=== PATIENT | female | born 1940 | race Caucasian/White ===

== ENCOUNTER 2019-03-25 12:58 | Inpatient (IN) | payer OTHER ==
[~2019-03-25] VITALS: Ht 160 cm; Wt 68.0 kg
--- NOTE | 2019-03-25 12:58 | NUR ---
PT TO ER BED 8 VIA FIRST RESCUE
[2019-03-25 13:01] VITALS: BP 76/44
[2019-03-25] MEDS ORDERED: NACL 0.9% 1,000 ML IV SCH (13:04)
[2019-03-25] MEDS ORDERED: cefTRIAXone 1,000 MG in DEXT 5% MINI-BAG PLUS 50 ML IV ONE (13:05)
--- NOTE | 2019-03-25 13:05 | NUR ---
20 gauge inserted into pts r ac. labs and cultures drawn bedside. lab called for pickup
--- NOTE | 2019-03-25 13:10 | NUR ---
PT BIBA FROM [facility] FOR FURTHER EVALUATION OF ABNORMAL LABS; WBC 12.9, BUN 40, CREATININE 1.8. PER REPORT PT WAS NOTED LETHARGIC AND CONFUSED. UPON ARRIVAL PT WAS AWAKE, ALERT AND ORIENTED TO PERSON, PLACE, TIME AND EVENT. PT WITH ABD WOUND VAC S/P HERNIA REPAIR SURGERY. PT CHANGED INTO HOSPTIAL GOWN; CONNECTED TO MONITOR. ERMD TO EVALUATE PT. ALLERGIES: NONE MED HX: GERD, HTN, A-FIB, VENTRAL HERNIA WITH OBSTRUCTION W/O GANGRENE
[2019-03-25] MEDS ORDERED: NACL 0.9% 500 ML IV SCH (13:16)
[2019-03-25] MEDS ORDERED: cefTRIAXone 1,000 MG VIAL ONE (13:25)
[2019-03-25] MEDS ORDERED: L. A1TAB10 PO (13:29)
[2019-03-25] MEDS ORDERED: IPRA3AMP2 IH (13:29)
[2019-03-25] MEDS ORDERED: LOV40I SUBQ (13:29)
[2019-03-25] MEDS ORDERED: LEVO750T2 PO (13:29)
[2019-03-25] MEDS ORDERED: METO25TA PO (13:29)
[2019-03-25] MEDS ORDERED: HYDR-5122 PO (13:29)
[2019-03-25] MEDS ORDERED: FAMO-90 PO (13:29)
[2019-03-25] MEDS ORDERED: POTA10TE30 PO (13:29)
[2019-03-25] MEDS ORDERED: ENAL-197 PO (13:29)
--- NOTE | 2019-03-25 13:34 | NUR ---
BLOOD SENT TO LAB WITH ALLISON NOLAND
[2019-03-25 13:43] LABS: BASOPHILS % (AUTO) 0.2 % (0.0-2.0); EOSINOPHILS # (AUTO) 0.2 K/uL (0-0.4); EOSINOPHILS % (AUTO) 1.4 % (0.0-4.0); HEMATOCRIT 29.8 % (36-48); HEMOGLOBIN 9.7 g/dL (12.0-16.0); LYMPHOCYTES # (AUTO) 1.6 K/uL (2.5-16.5); MEAN CORPUSCULAR HEMOGLOBIN 30 pg (27-31); MEAN CORPUSCULAR HGB CONC 32 g/dL (33-37); MEAN CORPUSCULAR VOLUME 93.1 fL (80-94); MONOCYTES # (AUTO) 0.9 K/uL (0.8-1.0); MONOCYTES % (AUTO) 8.2 % (1.7-9.3); NEUTROPHILS # (AUTO) 8.7 K/uL (1.8-7.7); NEUTROPHILS % (AUTO) 76.2 % (42.2-75.2); PLATELET COUNT (AUTO) 401 K/uL (140-450); RED BLOOD CELL COUNT(AUTO) 3.21 MIL/uL (4.20-5.40); RED CELL DISTRIBUTION WIDTH 13.8 % (11.6-13.7); WHITE BLOOD COUNT (AUTO) 11.5 K/uL (4.8-10.8)
--- NOTE | 2019-03-25 13:56 | NUR ---
ROMULO SON [phone]
[2019-03-25 14:16] LABS: ALBUMIN 2.2 g/dL (3.4-5.0); ANION GAP 16.7 (8-16); ASPARTATE AMINOTRANSFERASE 25 U/L (15-37); CARBON DIOXIDE 24.8 mmol/L (21-32); CHLORIDE 103 mmol/L (98-107); CREATININE 2.5 mg/dL (0.6-1.3); GLUCOSE 96 mg/dL (74-106); POTASSIUM 3.5 mmol/L (3.5-5.1); SODIUM SERUM 141 mmol/L (136-145); TOTAL BILIRUBIN 0.5 mg/dL (0.0-1.0)
[2019-03-25 15:00] LABS: UREA NITROGEN, BLOOD 45 mg/dL (7-18)
[2019-03-25 15:48] LABS: APPEARANCE,URINE HAZY (CLEAR); BILIRUBIN,URINE NEGATIVE (NEGATIVE); BLOOD, URINE 2+ (NEGATIVE); COLOR,URINE YELLOW (YELLOW); LEUKOCYTE ESTERASE ,URINE 1+ (NEGATIVE); NITRITE, URINE NEGATIVE (NEGATIVE); UGLUCOSE NEGATIVE (NEGATIVE)
[2019-03-25 15:56] LABS: RBC,URINE 11-20 (MOD) /HPF (0-5); WBC,URINE TOO MANY TO COUNT /HPF (0-5)
--- NOTE | 2019-03-25 16:00 | NUR ---
Oxygen applied at 2 L per minute via NC. 02 saturation 98% by pulse oximetry.
[2019-03-25] MEDS ORDERED: ONDANSETRON 4 MG/2 ML VIAL IVP PRN (16:35)
[2019-03-25] MEDS ORDERED: HYDROcodone/APAP 7.5/325 MG 1 TAB PO PRN (16:35)
[2019-03-25] MEDS ORDERED: ACETAMINOPHEN 325 MG TAB PO PRN (16:35)
--- NOTE | 2019-03-25 17:56 | NUR ---
Pt admitted from ER to room 120B via gurney. Transferred to bed with total assist. Received report from pm nurse Tali. Pt aaox2, forgetful, able to verbalize needs. Son Momo at bedside with pt. Left hand 22H IV saline lock & right AV IV saline lock intact & asymptomatic. Abd dressing clean, dry, & intact. Pt denies any pain at this time. Pt oriented to room & unit, able to return demonstrate proper use of call light & bed controls. Fall risk protocol initiated. MRSA swab obtained.
--- NOTE | 2019-03-25 17:59 | NUR ---
Patient admitted to care of Dr. Rascon. Admited to Med Surge RM 120B. Belongings list completed. Report to ALLISON Warren. Pt in stable condition; transfer of care at this time.
[2019-03-25 18:00] VITALS: BP 108/66
--- NOTE | 2019-03-25 18:20 | NUR ---
Momo son informed nurse that he will go out to get food for pt, and will be back in a few minutes. Pt in high fowlers in bed, no c/o discomfort, respirations even & nonlabored. Call light within reach.
[2019-03-25] MEDS: NACL 0.9% 1,000 ML IV SCH (18:30)
--- NOTE | 2019-03-25 19:10 | NUR ---
Bedside report given to pm nurse Yessenia. Pt sitting up in bed, eating pudding, no signs of distress. Call light within reach.
--- NOTE | 2019-03-25 19:11 | NUR ---
RECEIVED BEDSIDE REPORT BY OMID BAEZA SHIFT RN. PT A/O X3. TO PERSON, PLACE, EVENT. PT IS FORGETFUL. TELUGU SPEAKING. DISCUSSED PLAN OF CARE. VERBALIZED UNDERSTANDING. STANDARD PRECAUTIONS IN PLACE. SAFETY PRECAUTIONS IN PLACE. YELLOW SOCKS, GOWN, BRACELET, AND SIGN NEAR DOOR. NO SIGNS OF RESP DISTRESS. NASAL CANULA @2.5L. SKIN IS NON INTACT. ABD WOUND. DRESSING CLEAN DRY AND INTACT. NO DRAINAGE NOTED. BILATERAL LOWER EXTREMITY EDEMA +2. R AC 20 SALINE LOCK. L HAND 22G INFUSING NS @100. PATENT AND INTACT. UNABLE TO AMBULATE. BED ALARM ACTIVE. BED IN LOWEST POSITION. CALL LIGHT WITHIN REACH. WILL CONTINUE TO MONITOR.
[2019-03-25 19:46] LABS: FREE T4 (FREE THYROXINE) 1.4 ng/dL (0.76-1.46); MAGNESIUM 1.4 mg/dL (1.8-2.4); PHOSPHORUS 3.6 mg/dL (2.5-4.9); THYROID STIMULATING HORMONE 4.53 uIU/mL (0.34-3.74)
[2019-03-25] MEDS ORDERED: METOPROLOL 25 MG TAB PO SCH (21:00)
[2019-03-25] MEDS: DOCUSATE SODIUM 100 MG GELCAP PO SCH (21:14)
[2019-03-25] MEDS ORDERED: PIPERACILLIN/TAZOBACTAM 3.375 GM VIAL IV ONE (21:36)
[2019-03-25] MEDS: PIPERACILLIN/TAZOBACTAM 3.375 GM in DEXTROSE 5% 50 ML IV SCH (21:40)
--- NOTE | 2019-03-25 21:40 | NUR ---
ADMINISTERED MEDS ORDERED. EDUCATED ON SIDE EFFECTS. PT VERBALIZED UNDERSTANDING. TOLERATED WELL. WILL CONTINUE TO MONITOR.
--- NOTE | 2019-03-26 | NUR ---
PT IS SLEEPING IN BED. EASILY AROUSABLE. NO SIGNS OF DISTRESS NOTED. ABLE TO MAKE NEEDS KNOWN. BED IN LOWEST POSITION. CALL LIGHT WITHIN REACH.
--- NOTE | 2019-03-26 02:22 | NUR ---
PT IS SLEEPING EASILY AROUSABLE. NO COMPLAINTS AT THIS TIME. DENIES PAIN. NO DISTRESS. BED IN LOW POSITION. CALL LIGHT WITHIN REACH. WILL CONTINUE TO MONITOR.
[2019-03-26] MEDS: NACL 0.9% 1,000 ML IV SCH ×2 (03:15→15:40)
[2019-03-26] MEDS ORDERED: PIPERACILLIN/TAZOBACTAM 3.375 GM VIAL IV ONE (04:57)
--- NOTE | 2019-03-26 05:04 | NUR ---
PT REQUESTED WATER WITH ICE. PT ABLE TO SWALLOW. PT REPOSITIONED IN BED. WILL CONTINUE TO MONITOR.
[2019-03-26] MEDS: PIPERACILLIN/TAZOBACTAM 3.375 GM in DEXTROSE 5% 50 ML IV SCH ×2 (06:08→21:20)
--- NOTE | 2019-03-26 06:08 | NUR ---
PERFORMED NOEL CARE. TOLERATED WELL. CHANGED DRESSING ON ABD WOUND. WOUND PICTURE TAKEN. TOLERATED WELL. NO SIGNS OF DISTRESS. WILL CONTINUE TO MONITOR.
[2019-03-26 06:37] LABS: ANION GAP 13.4 (8-16); CARBON DIOXIDE 24.8 mmol/L (21-32); CHLORIDE 109 mmol/L (98-107); CREATININE 1.7 mg/dL (0.6-1.3); GLUCOSE 106 mg/dL (74-106); POTASSIUM 3.2 mmol/L (3.5-5.1); SODIUM SERUM 144 mmol/L (136-145); UREA NITROGEN, BLOOD 35 mg/dL (7-18)
--- NOTE | 2019-03-26 06:39 | NUR ---
WILL ENDORSE PT TO DAYSHIFT RN. PT IN STABLE CONDITION. BED IN LOWEST POSITION. CALL LIGHT WITHIN REACH. WILL CONTINUE TO MONITOR.
[2019-03-26 06:46] LABS: CHOL/HDL RATIO 7.1 (1-4.5)
[2019-03-26 06:48] LABS: MAGNESIUM 1.4 mg/dL (1.8-2.4); PHOSPHORUS 3.3 mg/dL (2.5-4.9)
[2019-03-26 06:55] LABS: BASOPHILS % (AUTO) 0.3 % (0.0-2.0); EOSINOPHILS # (AUTO) 0.4 K/uL (0-0.4); EOSINOPHILS % (AUTO) 4.4 % (0.0-4.0); HEMOGLOBIN 8.7 g/dL (12.0-16.0); LYMPHOCYTES # (AUTO) 1.4 K/uL (2.5-16.5); LYMPHOCYTES % (AUTO) 14.6 % (20.5-51.1); MEAN CORPUSCULAR HEMOGLOBIN 31 pg (27-31); MEAN CORPUSCULAR HGB CONC 34 g/dL (33-37); MEAN CORPUSCULAR VOLUME 93.6 fL (80-94); MONOCYTES # (AUTO) 0.7 K/uL (0.8-1.0); MONOCYTES % (AUTO) 7.5 % (1.7-9.3); NEUTROPHILS # (AUTO) 7.2 K/uL (1.8-7.7); NEUTROPHILS % (AUTO) 73.2 % (42.2-75.2); PLATELET COUNT (AUTO) 273 K/uL (140-450); RED BLOOD CELL COUNT(AUTO) 2.78 MIL/uL (4.20-5.40); RED CELL DISTRIBUTION WIDTH 13.8 % (11.6-13.7); WHITE BLOOD COUNT (AUTO) 9.9 K/uL (4.8-10.8)
--- NOTE | 2019-03-26 07:35 | NUR ---
RECIEVED REPORT FROM NIGHT NURSE, PT AWAKE A/O AND APPROPRIATE ABLT TO COMMUNICATE NEEDS. CALL LIGHT AND SAFETY PRECAUTIONS IN PLACE, PERSONAL ITEMS WITHIN EASY REACH. PT DENIES PAIN, NO S/S OF ACUTE DISTRESS NOTED, WILL CONTINUE TO MONITOR.
[2019-03-26 08:00] VITALS: BP 101/54
--- NOTE | 2019-03-26 08:10 | NUR ---
RECEIVED PT ON 2 L NASAL CANNULA. AWAKE AND ALERT. NO RESP DISTRESS. HR 91, SAT 02 97% , RR 22.
[2019-03-26] MEDS ORDERED: POTASSIUM CHLORIDE 10 MEQ TABER PO SCH (09:00)
[2019-03-26] MEDS ORDERED: ENOXAPARIN 30 MG/0.3 ML SYR SUBQ SCH (09:00)
[2019-03-26] MEDS: LACTOBACILLUS RHAMNOSUS GG 1 EACH CAP PO SCH (09:13)
[2019-03-26] MEDS: DOCUSATE SODIUM 100 MG GELCAP PO SCH ×2 (09:13→21:12)
[2019-03-26] MEDS: FAMOTIDINE 20 MG TAB PO SCH (09:14)
[2019-03-26] MEDS: MAG SULF 2000 MG/WATER PREMIX 50 ML IV SCH ×2 (09:16→11:37)
--- NOTE | 2019-03-26 10:12 | NUR ---
PATIENT HAS BEEN SCREENED AND CATEGORIZED HIGH NUTRITION RISK. PATIENT WILL BE SEEN WITHIN 1-2 DAYS OF ADMISSION. 03/26/19-03/27/[address]
--- NOTE | 2019-03-26 10:30 | NUR ---
PT AWAKE A/O AND APPROPRIATE ABLT TO COMMUNICATE NEEDS, VISITING W FAMILY AT BEDSIDE, CALL LIGHT AND SAFETY PRECAUTIONS IN PLACE, PERSONAL ITEMS WITHIN EASY REACH. PT DENIES PAIN, NO S/S OF ACUTE DISTRESS NOTED, WILL CONTINUE TO MONITOR.
--- NOTE | 2019-03-26 12:04 | NUR ---
WOUND CARE EVALUATION NOTE: REASON FOR EVALUATION: SURGICAL WOUNDS TO MID AND LOWER ABDOMINAL SKIN ASSESSMENT DONE ON WITH THIS 73Y/O FEMALE PATIENT [facility] TO [facility] WITH INITIAL DIAGNOSIS OF RADHA. PAST MEDICAL HX WITH HTN LEFT EYE BLINDNESS AND RECENT VENTRAL HERNIA REPAIRMEN. ALL ABOVE INFORMATION WAS OBTAINED FROM THE ADMISSION H&P. AND PT. PT IS AAX4. SON AT BEDSIDE AND PROVIDES INFORMATION R/T HX OF SURGERY, PT. HAD SURGERY AT [facility] AND HAD WOUND VAC TX SINCE THE SURGERY. SKIN WARM TO TOUCH, NO EDEMA BLE, BILATERAL PEDAL PULSES PRESENT, NEEDS SET UP ASSISTANCE IN TURNING. INITIAL PLAN OF CARE DISCUSSED WITH SON AND PT. PT. VERBALIZES UNDERSTANDING.DR. WICK NOTIFIED LOWER ABDOMINAL 6 STABLES AND VERBAL ORDERS GIVEN TO REMOVE THE BOB. INTEGUMENTARY: -SURGICAL WOUND TO MID LOWER ABDOMINAL, 10X5X0.5CM WOUND BED 100% GRANULATING TISSUE, SMALL AMOUNT SEROSANGUINEOUS BLEEDING, NO ODOR, WOUND EDGE WELL DEFINED, WITH NOEL-WOUND SKIN DRY AND INTACT. -SURGICAL WOUND TO LOWER ABDOMINAL, CURVED LINER WOUND SHAPE, 6 BOB REMOVED, NO S/S OF INFECTION, STERI STRIPS APPLIED RECOMMENDATIONS: -CLEANSE MID ABDOMINAL WOUND WITH NS. PAT DRY APPLY THERAHONEY GEL WITH ADAPTIC DRESSING SHEET TO WOUND BED AND COVER WITH DRY DRESSING, SECURE WITH TAPE QM-W-F AND PRN IF SOILING -KEEP LOWER ABDOMINAL STERI STRIPS IN PLACE, APPLY DRY DRESSING AND CHANGE PRN IF SOILING -KEEP AREA DRY AND CLEAN AT ALL TIME -TURN AND REPOSITION PATIENT Q 2H OFFLOAD LEFT AND RIGHT HIPS -ASSESS AND MONITOR SKIN CONDITION DURING POSITION CHANGE, PLEASE PAY ATTENTION TO FEET AND HEELS -OFFLOAD BILATERAL HEELS BY PLACING PILLOWS UNDER CALVES AT ALL TIMES, UNLESS OTHERWISE CONTRAINDICATED -SNF OR HOME HEALTH FOR WOUND CARE UPON DISCHARGED -PLEASE FOLLOW UP WITH PCP 7-10 DAYS AFTER DISCHARGED RECOMMENDATIONS DISCUSSED WITH PRIMARY RN. PLEASE CONTACT WOUND CARE NURSE FOR ANY QUESTIONS AND CHANGES IN SKIN CONDITION.
[2019-03-26] MEDS: THERAHONEY GEL 42.5 GM TP SCH (13:00)
--- NOTE | 2019-03-26 13:30 | NUR ---
PT REMAINS AWAKE A/O AND APPROPRIATE ABLT TO COMMUNICATE NEEDS, PROVIDED WITH ICE CREAM PER REQUEST. CALL LIGHT AND SAFETY PRECAUTIONS IN PLACE, PERSONAL ITEMS WITHIN EASY REACH. PT DENIES PAIN, NO S/S OF ACUTE DISTRESS NOTED, WILL CONTINUE TO MONITOR.
[2019-03-26 16:00] VITALS: BP 107/56
--- NOTE | 2019-03-26 16:30 | NUR ---
PT REMAINS AWAKE A/O AND APPROPRIATE ABLT TO COMMUNICATE NEEDS, CALL LIGHT AND SAFETY PRECAUTIONS IN PLACE, PERSONAL ITEMS WITHIN EASY REACH. PT DENIES PAIN, NO S/S OF ACUTE DISTRESS NOTED, WILL CONTINUE TO MONITOR.
--- NOTE | 2019-03-26 19:20 | NUR ---
RECEIVED REPORT FROM DEONNA COOPER DAYSHIFT NURSE, FOR CONTINUITY OF CARE, PT IN STABLE CONDITION.
--- NOTE | 2019-03-26 19:20 | NUR ---
REPORT ENDORSED TO ONCOMING NURSE, PT CURRENTLY SLEEPING, APPEARS COMFORTABLE. CALL LIGHT AND SAFETY PRECAUTIONS IN PLACE, PERSONAL ITEMS WITHIN EASY REACH. PT DENIES PAIN, NO S/S OF ACUTE DISTRESS NOTED WILL CONTINUE TO MONITOR.
--- NOTE | 2019-03-26 21:00 | NUR ---
PT IN BED AOX2, PT IS AWARE OF NAME AND THAT SHE IS IN A HOSPITAL BUT OTHERWISE PT IS CONFUSED. PT REORIENTED TO TIME, PLACE AND DATE. SKIN INTACT EXCEPT ABD WOUND, DRESSING IS DRY AND INTACT. PT HAS 22 GUAGE IN LEFT HAND WHICH IS INTACT AND FLUSHED PATENT. IV FLUID IF NORMAL SALINE RUNNING AT 70MLS/HR. PT HAS PITTING EDEMA ON LOWER EXTREMITIES +1 BILATERALLY. PT ALSO HAS MISSING/DAMAGED LEFT EYE. SHE HAS NO C/O OF PAIN AND ALL REQUESTED NEEDS ATTENDED BY STAFF. PT GIVEN ORDERED ZOSYN AND COLACE MEDICATION EDUCATION PROVIDED TO PT. PT VERBALIZED UNDERSTANDING. ALL FALLS PRECAUTIONS IN PLACE AND CALL ECHEVERRIA IN REACH.
--- NOTE | 2019-03-26 22:30 | NUR ---
PT WAS TURNED, CHANGED AND REPOSITIONED. PT ALSO REQUESTED A SNACK WHICH WAS PROVIDED TO HER. ALL FALLS PRECAUTIONS IN PLACE AND CALL ECHEVERRIA IN REACH.
[2019-03-27] VITALS: BP 94/58
--- NOTE | 2019-03-27 00:30 | NUR ---
R P T IN BED ALL FALLS PRECAUTIONS IN PLACE AND V/S FOLLOWS T 98.8 P 90 R 18 B/P 94/58 02 96% ON ROOM AIR. PT REQUESTING N/C WHICH IS RUNNING AT 2 LITERS.
[2019-03-27] MEDS: NACL 0.9% 1,000 ML IV SCH (05:30)
[2019-03-27 06:17] LABS: ANION GAP 12.4 (8-16); CARBON DIOXIDE 23.9 mmol/L (21-32); CHLORIDE 108 mmol/L (98-107); CREATININE 1.3 mg/dL (0.6-1.3); GLUCOSE 114 mg/dL (74-106); POTASSIUM 3.3 mmol/L (3.5-5.1); SODIUM SERUM 141 mmol/L (136-145); UREA NITROGEN, BLOOD 25 mg/dL (7-18)
[2019-03-27] MEDS: PIPERACILLIN/TAZOBACTAM 3.375 GM in DEXTROSE 5% 50 ML IV SCH ×2 (06:31→19:17)
--- NOTE | 2019-03-27 07:15 | NUR ---
RECEIVED BEDSIDE REPORT FROM TIME RECORDER NURSE, PT IS AWAKE AND ALERT, CURRENTLY GETTING A BREATHING TX. NO S/S OF ACUTE DISTRESS NOTED. PT IS ON 2L O2 NC. ABD WOUND IS COVERED BY DRY DRESSINGS. IV SITE NOTED ON THE L HAND, 22 G, INFUSING NS 70 ML/HR. PT ALSO HAS IV SITE ON HER R HAND, 20 G. FALL PRECAUTIONS ARE IN PLACE. CALL LIGHT IS WITHIN REACH. WILL CONTINUE TO MONITOR.
[2019-03-27] MEDS: ALBUTEROL SULFATE/IPRATROPIU 3 ML SOL IH SCH ×4 (07:16→20:05)
[2019-03-27 08:00] VITALS: BP 96/60
[2019-03-27] MEDS ORDERED: POTASSIUM CHLORIDE 40 MEQ, LIDOCAINE MPF 1% - 5 mL VIAL 25 MG in NACL 0.9% 250 ML IV SCH (08:00)
[2019-03-27 08:21] LABS: BASOPHILS # (AUTO) 0.1 K/uL (0.00-0.22); BASOPHILS % (AUTO) 0.6 % (0.0-2.0); HEMATOCRIT 26.4 % (36-48); HEMOGLOBIN 8.8 g/dL (12.0-16.0); LYMPHOCYTES # (AUTO) 1.3 K/uL (2.5-16.5); LYMPHOCYTES % (AUTO) 13.5 % (20.5-51.1); MEAN CORPUSCULAR HEMOGLOBIN 31 pg (27-31); MEAN CORPUSCULAR HGB CONC 33 g/dL (33-37); MEAN CORPUSCULAR VOLUME 93.9 fL (80-94); MONOCYTES # (AUTO) 0.7 K/uL (0.8-1.0); MONOCYTES % (AUTO) 7.2 % (1.7-9.3); NEUTROPHILS # (AUTO) 6.8 K/uL (1.8-7.7); NEUTROPHILS % (AUTO) 68.7 % (42.2-75.2); PLATELET COUNT (AUTO) 250 K/uL (140-450); RED BLOOD CELL COUNT(AUTO) 2.81 MIL/uL (4.20-5.40); RED CELL DISTRIBUTION WIDTH 14.5 % (11.6-13.7)
--- NOTE | 2019-03-27 08:32 | NUR ---
AM MEDS ADMINISTERED, PT TOLERATED WELL.
[2019-03-27] MEDS: DOCUSATE SODIUM 100 MG GELCAP PO SCH ×2 (08:48→21:00)
[2019-03-27] MEDS: FAMOTIDINE 20 MG TAB PO SCH (08:48)
[2019-03-27] MEDS: ENOXAPARIN 30 MG/0.3 ML SYR SUBQ SCH (08:48)
[2019-03-27] MEDS: LACTOBACILLUS RHAMNOSUS GG 1 EACH CAP PO SCH (08:48)
--- NOTE | 2019-03-27 10:24 | NUR ---
PHYS THERAPIST WORKING WITH PT AT THIS TIME.
--- NOTE | 2019-03-27 13:12 | NUR ---
PT REFUSED HHN TX AT THIS TIME, SHE WAS ADVISED TO CALL IF SHE NEEDED IT AT A LATER TIME.
--- NOTE | 2019-03-27 14:13 | NUR ---
03/27/19 RD INITIAL ASSESSMENT COMPLETED PLEASE REFER TO NUTRITION ASSESSMENT UNDER CARE ACTIVITY FOR ESTIMATED NUTRITIONAL NEEDS. 1. CONTINUE MECHANICAL SOFT DIET TOLERATED 2. RD TO FOLLOW-UP 3-5 DAYS, MODERATE RISK MATEUS SHARMA RD
--- NOTE | 2019-03-27 15:10 | NUR ---
PT ENDORSED TO KULDIP COOPER FOR CONTINUITY OF CARE. PT IS IN STABLE CONDITION.
--- NOTE | 2019-03-27 15:11 | NUR ---
RECEIVED REPORT FROM DAY SHIFT NURSE FOR CONTINUITY OF CARE. PT IN STABLE CONDITION. RESPIRATIONS EVEN AND UNLABORED. IV INTACT AND PATENT. BED IN LOW POSITION. BED ALARM ON. WILL CONTINUE TO MONITOR.
[2019-03-27 16:00] VITALS: BP 106/58
--- NOTE | 2019-03-27 17:10 | NUR ---
GAVE PT SON PHONE NUMBER ON SCRATCH PAPER PER PT REQUEST.
--- NOTE | 2019-03-27 18:41 | NUR ---
LAB CALLED POSITIVE MRSA URINE AND NARES.
--- NOTE | 2019-03-27 19:15 | NUR ---
GAVE REPORT TO CRANE OPERATOR CAB NURSE RANJEET FOR CONTINUITY OF CARE. PT IN STABLE CONDITION.
--- NOTE | 2019-03-27 19:16 | NUR ---
RECEIVED BEDSIDE REPORT FROM DAY SHIFT NURSE. NO SOB NOTED. BREATHING EVEN AND UNLABORED. IV SITE ON L HAND 22G, PATENT, INTACT, AND ASYMPTOMATIC. SKIN WARM AND DRY TO TOUCH. ON NC 2LPM. BOARD UPDATED. BED IN LOW POSITION. CALL LIGHT WITHIN REACH.
--- NOTE | 2019-03-27 21:07 | NUR ---
PT REFUSED COLACE, EXPLAIN BENEFIT AND RISK 3TIMES, PT STILL REFUSED.
--- NOTE | 2019-03-27 23:30 | NUR ---
PT SLEEPING IN BED COMFORTABLY. NO SOB NOTED, RESPIRATION EVEN AND UNLABORED. BED IN LOW POSITION. CALL LIGHT WITHIN REACH.
[2019-03-28] VITALS: BP 115/75
[2019-03-28] MEDS ORDERED: CHLORHEXADINE GLUC 2% CLOTH TP SCH
--- NOTE | 2019-03-28 01:45 | NUR ---
PT AWAKE AND STATE "I CAN'T SEE" AND TRY TO CALL SON. NEURO CHECK DONE, WITHIN NORMAL RANGE OTHER THAN L EYE BLIND. PT ABLE TO READ SON'S PHONE NUMBER. REORIENT PT IT IS MIDDLE IN THE NIGHT AND SON IS SLEEPING. PT AGREED AND STATED "I AM GOING TO SLEEP." BED IN LOW POSITION. CALL LIGHT WITHIN REACH.
--- NOTE | 2019-03-28 03:55 | NUR ---
PT CONFUSED. TRIED TO PULL OUT IV LINE. PT THINK HARMFUL MEDICATION GIVEN THRU IV. REORIENT PT ON IV FLUID, NS.
[2019-03-28] MEDS: NACL 0.9% 1,000 ML IV SCH (04:30)
--- NOTE | 2019-03-28 06:30 | NUR ---
PT PULLED LEFT HAND T IV LINE OUT. CANNULA INTACT. NO BLOOD NOTED. TRIED TO RECONNEC Addendum: 03/28/19 at 0707 by Brenda Spain RN TRIED TO RECONNECT IV FLUID TO RAC LINE BUT PT STRONGLY REFUSED. EXPLAIN BENEFIT AND RISK 7 TIMES, PT CONFUSED AND STILL STRONGLY REFUSED. PT ALSO REFUSED ZOSYN IVPB. NOTIFIED TO RESIDENT
[2019-03-28] MEDS: PIPERACILLIN/TAZOBACTAM 3.375 GM in DEXTROSE 5% 50 ML IV SCH (07:00)
--- NOTE | 2019-03-28 07:29 | NUR ---
ENDORSED PT TO CHARGE NURSE. PT IN STABLE CONDITION. Addendum: 03/28/19 at 0745 by Brenda Spain RN ENDORSED PT TO DAY SHIFT NURSENYASIA. PT IN STABLE CONDITION.
[2019-03-28 07:30] LABS: BASOPHILS # (AUTO) 0.1 K/uL (0.00-0.22); BASOPHILS % (AUTO) 0.7 % (0.0-2.0); EOSINOPHILS # (AUTO) 1.1 K/uL (0-0.4); EOSINOPHILS % (AUTO) 11.3 % (0.0-4.0); HEMATOCRIT 26.4 % (36-48); HEMOGLOBIN 8.8 g/dL (12.0-16.0); LYMPHOCYTES # (AUTO) 1.1 K/uL (2.5-16.5); LYMPHOCYTES % (AUTO) 11.2 % (20.5-51.1); MEAN CORPUSCULAR HEMOGLOBIN 31 pg (27-31); MEAN CORPUSCULAR HGB CONC 33 g/dL (33-37); MEAN CORPUSCULAR VOLUME 93.4 fL (80-94); MONOCYTES # (AUTO) 0.6 K/uL (0.8-1.0); MONOCYTES % (AUTO) 6.3 % (1.7-9.3); NEUTROPHILS # (AUTO) 6.7 K/uL (1.8-7.7); NEUTROPHILS % (AUTO) 70.5 % (42.2-75.2); PLATELET COUNT (AUTO) 239 K/uL (140-450); RED BLOOD CELL COUNT(AUTO) 2.83 MIL/uL (4.20-5.40); RED CELL DISTRIBUTION WIDTH 14.3 % (11.6-13.7); WHITE BLOOD COUNT (AUTO) 9.5 K/uL (4.8-10.8)
--- NOTE | 2019-03-28 07:31 | NUR ---
RECEIVED BED SIDE REPORT FROM PERSONNEL CONSULTANT RN FEBRUARY. PT ON CONTACT ISO FOR MRSA NARES AND URINE. PER PERSONNEL CONSULTANT RN, PT HAS REFUSED MEDS AND IV TUBING CONNECTION. PERSONNEL CONSULTANT RN UNABLE TO GIVE ZOSYN. PER PERSONNEL CONSULTANT RN, HE NOTIFIED THE RESIDENTS. RIGHT AC 20G SALINE LOCK. ON RA. BED ALARM ON, CALL LIGHT WITHIN REACH
[2019-03-28 07:34] LABS: ANION GAP 12.6 (8-16); CARBON DIOXIDE 24.8 mmol/L (21-32); CHLORIDE 106 mmol/L (98-107); GLUCOSE 118 mg/dL (74-106); POTASSIUM 3.4 mmol/L (3.5-5.1); SODIUM SERUM 140 mmol/L (136-145); UREA NITROGEN, BLOOD 15 mg/dL (7-18)
--- NOTE | 2019-03-28 08:23 | NUR ---
VS STABLE, RT AT BEDSIDE DOING BREATHING TX. PT REFUSED ALL MEDICATIONS, EXPLAINED THE IMPORTANCE OF TAKING MEDICATIONS BUT PT STILL REFUSED. SHE STATES "I DONT WANT ANYTHING IN ME".
[2019-03-28] MEDS ORDERED: VANCOMYCIN PER PHARMACY MC PRN (08:35)
[2019-03-28] MEDS: FAMOTIDINE 20 MG TAB PO SCH ×2 (09:00→11:41)
[2019-03-28] MEDS: ENOXAPARIN 30 MG/0.3 ML SYR SUBQ SCH ×2 (09:00→11:47)
[2019-03-28] MEDS: POTASSIUM CHLORIDE 10 MEQ TABER PO SCH ×2 (09:00→11:42)
[2019-03-28] MEDS: LACTOBACILLUS RHAMNOSUS GG 1 EACH CAP PO SCH ×2 (09:00→11:40)
[2019-03-28] MEDS: DOCUSATE SODIUM 100 MG GELCAP PO SCH ×2 (09:00→11:41)
[2019-03-28 11:02] VITALS: BP 114/69
--- NOTE | 2019-03-28 11:32 | NUR ---
EDUCATED PT'S SON ROMULO ON THE REASON WHY HER MOM IS ON CONTACT ISOLATION. TOLD HIM TO WEAR GOWN AND GLOVES HOWEVER GOWN IS TOO SMALL. HE IS SITTING ON CHAIR WITH NO GOWN
--- NOTE | 2019-03-28 11:45 | NUR ---
PT TOOK AM MEDS AFTER SON AND I EXPLAINED THE IMPORTANCE OF COMPLYING WITH MEDS AND TX. CRUSHED MEDS AND MIXED WITH APPLESAUCE. PT TOOK ONLY HALF OF CUP OF APPLESAUCE WITH MEDS. ZOSYN BAG STILL HANGING, GAVE IT TO PT.
--- NOTE | 2019-03-28 12:31 | NUR ---
PT EATING LUNCH. WILL HANG VANCO PER MD ORDER. WILL DO WOUND DRESSING CHANGE WHEN PT FINISHES EATING
[2019-03-28] MEDS: VANCOMYCIN 1,000 MG in DEXTROSE 5% 250 ML IV SCH (12:45)
--- NOTE | 2019-03-28 12:45 | NUR ---
DID WOUND CARE DRESSING CHANGE PER TOOL ADJUSTER'S ORDER. MID ABDOMINAL WOUND BED BLANCHABLE PINK, NO PAIN ASSOCIATED WITH WOUND, MODERATE AMOUNT OF PURULENT DRAINAGE, CLEANED WITH NS, PAT DRY, APPLIED ADAPTIC DRESSING ON WOUND, AND ABDOMINAL PAD WITH TAPE.
[2019-03-28] MEDS: ALBUTEROL SULFATE/IPRATROPIU 3 ML SOL IH SCH ×2 (13:10→19:41)
[2019-03-28] MEDS: THERAHONEY GEL 42.5 GM TP SCH (13:32)
[2019-03-28 16:43] VITALS: BP 117/72
--- NOTE | 2019-03-28 17:15 | NUR ---
CLAIRE RUTH RN STARTED RIGHT FOREARM 20 GAUGE. FLUSHES WELL, GOOD BLOOD RETURN
--- NOTE | 2019-03-28 17:29 | NUR ---
Mail Handlers Supervisor Note: Late entry for 03/26/19: I met with patient and patient's son Momo Morataya. Patient alert and oriented x4. I introduced myself to them and explained my role as a certified medical assistant. They both verbalized understanding. Prior to hospital admission patient was at [facility] . However, both markel and Momo would like patient to be transferred to another snf upon discharge. They told me they think patient was not receiving proper care at [facility] and they stated that facility has poor ratings online. Markel and Momo would like short term snf placement, not long snf placement. is aware patient and her son Momo would like assistance with snf placement. Per , patient and Momo would like patient to be transferred to [facility] upon discharge. Both patient and Momo stated patient is self responsible with medical decisions, she does not have an existing Advance Directive. Momo told me prior to patient's admission at [facility] patient was at [facility]. I faxed inquiry to [facility]. Per Karyna from [facility] , patient has been accepted at their facility, room 126A. Per , he would like to be accepting physician at [facility]. I informed Karyna of 's request, she stated will be accepting physician. Atm Mechanic and/or Instrumental Music Teacher will follow up as needed.
--- NOTE | 2019-03-28 19:20 | NUR ---
GAVE BED SIDE REPORT. BRADLY FROST
--- NOTE | 2019-03-28 19:21 | NUR ---
Received endorsement from AM shift RN; patient A/Ox4, able to make needs known, on bedrest. Introduced self, updated board. No SOB or distress noted, on O2 2LPM via nasal cannula. IV site on right forearm, 20 gauge, intact, running IVF at 40mL/hr. Wound noted mid abdominal area, dressing dry and intact. Bed in the lowest position, call light within reach. Initial assessment done. Will continue to monitor. Addendum: 03/29/19 at 0605 by Memo Troy RN On contact precautions for MRSA Nares and urine; observed and maintained.
--- NOTE | 2019-03-28 21:05 | NUR ---
Rounds made, no distress noted.
--- NOTE | 2019-03-28 23:52 | NUR ---
Vitals taken, no distress noted.
[2019-03-29] VITALS: BP 116/70
[2019-03-29] MEDS ORDERED: MUPIROCIN CA NASAL 2% 1GM TUBE NS SCH
--- NOTE | 2019-03-29 00:02 | NUR ---
Vitals taken, no distress noted.
--- NOTE | 2019-03-29 00:15 | NUR ---
Due meds given, tolerated well.
--- NOTE | 2019-03-29 00:20 | NUR ---
Dr. Leonard at bedside at this time to assess wound on abdomen.
--- NOTE | 2019-03-29 03:00 | NUR ---
Checks made; no distress noted.
[2019-03-29] MEDS: NACL 0.9% 1,000 ML IV SCH (03:44)
--- NOTE | 2019-03-29 06:03 | NUR ---
Rounds done; patient asleep, eyes closed, visible chest rise and fall noted.
[2019-03-29 06:54] LABS: ANION GAP 9.1 (8-16); CARBON DIOXIDE 29.3 mmol/L (21-32); CHLORIDE 105 mmol/L (98-107); CREATININE 0.9 mg/dL (0.6-1.3); GLUCOSE 102 mg/dL (74-106); POTASSIUM 3.4 mmol/L (3.5-5.1); SODIUM SERUM 140 mmol/L (136-145); UREA NITROGEN, BLOOD 10 mg/dL (7-18)
--- NOTE | 2019-03-29 07:30 | NUR ---
Endorsed patient to AM shift RN for continuity of care; patient in stable condition.
[2019-03-29 07:32] LABS: BASOPHILS % (AUTO) 0.5 % (0.0-2.0); EOSINOPHILS # (AUTO) 1.1 K/uL (0-0.4); HEMATOCRIT 25.8 % (36-48); HEMOGLOBIN 8.5 g/dL (12.0-16.0); LYMPHOCYTES # (AUTO) 1.1 K/uL (2.5-16.5); MEAN CORPUSCULAR HEMOGLOBIN 31 pg (27-31); MEAN CORPUSCULAR HGB CONC 33 g/dL (33-37); MEAN CORPUSCULAR VOLUME 93.8 fL (80-94); MONOCYTES # (AUTO) 0.7 K/uL (0.8-1.0); MONOCYTES % (AUTO) 8.2 % (1.7-9.3); NEUTROPHILS # (AUTO) 5.2 K/uL (1.8-7.7); NEUTROPHILS % (AUTO) 64.3 % (42.2-75.2); PLATELET COUNT (AUTO) 220 K/uL (140-450); RED BLOOD CELL COUNT(AUTO) 2.75 MIL/uL (4.20-5.40); RED CELL DISTRIBUTION WIDTH 14.3 % (11.6-13.7); WHITE BLOOD COUNT (AUTO) 8.2 K/uL (4.8-10.8)
--- NOTE | 2019-03-29 07:32 | NUR ---
RECEIVED REPORT FROM NIGHT RN.PT RESTING IN BED. AAOX4, NO S/S OF ACUTE DISTRESS. PT DENIES PAIN IV SITE PATENT AND INTACT. TP STATES SHE CAN NOT SEE OUT OF HER RIGHT EYE WHICH IS NEW. DR. WICK MADE AWARE. CALL LIGHT WITHIN REACH. SAFETY MEASURE ENSURED. WILL CONTINUE TO MONITOR.
--- NOTE | 2019-03-29 07:43 | NUR ---
BUSINESS SERVICES ANALYST AT BEDSIDE FOR PHYSICAL HYGIENE AND REPOSITION BODY LINE FINISHER TO ATTEMPT HHN THERAP[Y AND RESPIRATORY DRUG AT A LATER TIME
[2019-03-29] MEDS: ALBUTEROL SULFATE/IPRATROPIU 3 ML SOL IH SCH ×2 (08:10→13:48)
[2019-03-29] MEDS ORDERED: HYDRAGUARD CREAM TP SCH (09:00)
[2019-03-29] MEDS: DOCUSATE SODIUM 100 MG GELCAP PO SCH (09:00)
[2019-03-29] MEDS: VANCOMYCIN 1,000 MG in DEXTROSE 5% 250 ML IV SCH (09:29)
[2019-03-29] MEDS ORDERED: VANC1PIG IV (09:45)
[2019-03-29] MEDS ORDERED: PIPE1PDS26 IV (09:45)
--- NOTE | 2019-03-29 09:55 | NUR ---
CALLED JENIFER KO SPOKE WITH BRADEN CIRCUIT BREAKER SUPERVISOR NOTIFIED HIM THAT PATIENT NEEDS URGENT OPHTHALMIC EVALUATION FOR ACUTE VISION LOSS FOR RIGHT EYE. PER BRADEN THEY HAVE THEIR OWN OPHTHALMOLOGY COMING TO [place] [facility] OR THEY WILL MAKE APPOINTMENT IF NEEDED. I FAXED THE ORDER. PER BRADEN THEY WILL BE RESPONSIBLE FOR THE TRANSPORT AND [facility]. I CALLED XIAO SPOKE WITH KOLE [phone] [facility] TRANSPORT CTE TEACHER TIME 3:30 PM. PT CAN GO TO ROOM 126A NOTIFIED NIKOLAS COOPER.
[2019-03-29 10:21] VITALS: BP 122/73
[2019-03-29 10:31] VITALS: BP 122/73
--- NOTE | 2019-03-29 11:41 | NUR ---
PT RESTING IN BED. NO S/S OF ACUTE DISTRESS. PT DENIES PAIN. SON ROMULO AT BEDSIDE. CALL LIGHT WITHIN REACH. SAFETY MEASURES ENSURED. WILL CONTINUE TO MONITOR.
[2019-03-29] MEDS ORDERED: PIPER/TAZO 2.25GM/D5W PREMIX 50 ML IV SCH (12:00)
[2019-03-29] MEDS: THERAHONEY GEL 42.5 GM TP SCH (12:28)
--- NOTE | 2019-03-29 13:57 | NUR ---
CONFIRMED PATIENT DISCHARGE TODAY WITH NIKOLAS/RN SATURATION 98% ON SUPPLEMENTAL OXYGEN AT 2 LPM VIA NC POST HHN THERAPY REMOVED FROM SUPPLEMENTAL OXYGEN CAD ENGINEER TO MONITOR ON ROOM AIR
--- NOTE | 2019-03-29 14:33 | NUR ---
P.T. NOTES Pt AWAKE, DECLINED TO PARTICIPATE W/ P.T., STATES SHE DOES NOT WANT TO GET UP TODAY, "I AM LEAVING TODAY ANYWAY! AND I HAVE THIS (REFERRING TO HER IV LINE), I CANNOT MOVE WITH THIS!", EXPLAINED TO PATIENT THAT SHE WAS ABLE TO GET UP YESTERDAY W/ P.T. STAFF EVEN W/ HER IV INSERTION, Pt STATES "I DID NOT GET UP YESTERDAY!", EXPLAINED TO PATIENT THAT SHE DID, & Pt EVEN WANTED HER SIDERAIL UP SO SHE CAN PULL FROM IT DURING BED MOB, THEN Pt SAID "WELL, I CANNOT SEE SO I CANNOT GET UP!", EXPLAINED TO PATIENT THAT SHE DID YESTERDAY, Pt REPLIED "WELL I CAN SEE YESTERDAY, BUT TODAY I CANNOT SEE!"; Pt WANTS TO BE CLEANED UP, NOTIFIED SORT MANAGER FOR PERINEAL CARE; REVIEWED HEP W/ PATIENT, FF UP TOMORROW IF PATIENT NOT D/C'd YET; CALL ECHEVERRIA,PHONE, TABLE IN REACH, BED ALARM ON. Addendum: 03/29/19 at 1440 by Maggie Fleming PT 03/29/19 Hgb=8.5; POTASSIUM=3.4
--- NOTE | 2019-03-29 15:27 | NUR ---
pT'S DISCHARGE INSTRUCTIONS PROVIDED. PT VERBALIZED UNDERSTANDING. SON ROMULO AWARE OF TRANSFER. NO S/S OF ACUTE DISTRESS. PT DENIES PAIN. IV PATENT AND INTACT. [facility] ANTONIOTON HERE FOR TRANSFER.
== END 2019-03-29 15:27 | DRG 177 ==
LOC: MED 12:58 → MTU 16:32
PROVIDERS: ADMIT General Practice; ATTEND General Practice
DX: J69.0 Pneumonitis due to inhalation of food and vomit (principal); J96.21 Acute and chronic respiratory failure with hypoxia; N17.0 Acute kidney failure with tubular necrosis; G93.41 Metabolic encephalopathy; E43 Unspecified severe protein-calorie malnutrition; N39.0 Urinary tract infection, site not specified; E87.2 Acidosis; K43.6 Other and unspecified ventral hernia with obstruction, without gangrene; I48.91 Unspecified atrial fibrillation; D64.9 Anemia, unspecified; E83.42 Hypomagnesemia; E87.6 Hypokalemia; H54.62 Unqualified visual loss, left eye, normal vision right eye; I10 Essential (primary) hypertension; K21.9 Gastro-esophageal reflux disease without esophagitis; Z22.322 Carrier or suspected carrier of Methicillin resistant Staphylococcus aureus; Z68.26 Body mass index [BMI] 26.0-26.9, adult; Z87.01 Personal history of pneumonia (recurrent)
CPT/HCPCS: 36415; 71045; 80048; 80053; 81001; 82140; 82150; 82553; 82607; 82728; 82746; 83036; 83540; 83605; 83690; 83735; 83880; 84100; 84439; 84443; 84484; 85025; 85045; 85610; 85730; 87040; 87081; 87086; 87186; 93005; 94640; 96361; 96365; 97110; 97116; 97161-GP; 97530; 99285; C1758; J0696; J1650; J2001; J2543; J3370; J3475; J3480; J7030; J7060; J7620; Q0092